=== PATIENT | male | born 1955 | race Caucasian/White ===

== ENCOUNTER 2016-06-04 15:09 | Emergency (ER) | payer MEDICARE, OTHER ==
[~2016-06-04] VITALS: Ht 170.2 cm; Wt 63.5 kg
[2016-06-04 15:21] VITALS: BP 143/77
--- NOTE | 2016-06-04 15:35 | NUR ---
PT PRESENTS TO ER C/O DISLODGED SUPRAPUBIC CATH X1 DAY. NAD NOTED. NO OTHER COMPLAINTS. IN ER BED 15.
--- NOTE | 2016-06-04 15:55 | NUR ---
22FR SUPRAPUBIC CATH INSERTED UNDER SUPERVISION OF DR CABRERA. DRAINING CLEAR YELLOW URINE. TOLERATED PROCEDURE WELL.
--- NOTE | 2016-06-04 15:59 | NUR ---
CALLED [facility] [phone], SPOKE WITH JOE, INFORMED HER PT IS READY TO GO BACK IF THEY CAN SEND A [facility] PT, SHE SAID SHE WILL LET THE NURSE KNOW
--- NOTE | 2016-06-04 16:14 | NUR ---
Bonifacio romero in ED - 06/04/16 at 1620 by [facility] Patient discharged to home in stable condition. Written and verbal after care instructions given. Patient verbalizes understanding of instruction.
--- NOTE | 2016-06-04 16:14 | NUR ---
PT ELOPED FROM FACILITY
[2016-06-04] MEDS ORDERED: PHEN200C5 PO (18:27)
[2016-06-04] MEDS ORDERED: ASPI81TA2 PO (18:27)
[2016-06-04] MEDS ORDERED: PANT40TA4 PO (18:27)
[2016-06-04] MEDS ORDERED: AMLO10TA2 PO (18:27)
[2016-06-04] MEDS ORDERED: BISA5TAB10 PO (18:27)
[2016-06-04] MEDS ORDERED: IBUP-1482 PO (18:27)
[2016-06-04] MEDS ORDERED: ACET-868 PO (18:27)
[2016-06-04] MEDS ORDERED: LORA0.5T PO (18:27)
[2016-06-04] MEDS ORDERED: NITR0.4T6 SL (18:27)
[2016-06-04] MEDS ORDERED: OXYB5TAB11 PO (18:27)
[2016-06-04] MEDS ORDERED: DOCU-270 PO (18:27)
[2016-06-04] MEDS ORDERED: LOSA100T15 PO (18:27)
[2016-06-04] MEDS ORDERED: TIMO5DRO4 EACHEYE (18:27)
[2016-06-04] MEDS ORDERED: MORP4VIA IV (18:27)
[2016-06-04] MEDS ORDERED: NAPR250T2 PO (18:27)
[2016-06-04] MEDS ORDERED: MAGN400O6 PO (18:27)
[2016-06-04] MEDS ORDERED: CLON0.1T PO (18:27)
[2016-06-04] MEDS ORDERED: HYDR2VIA3 IM (18:27)
[2016-06-04] MEDS ORDERED: DIVA250T PO (18:27)
[2016-06-04] MEDS ORDERED: NA P133E RC (18:27)
[2016-06-04] MEDS ORDERED: POLY17PO4 PO (18:27)
[2016-06-04] MEDS ORDERED: BACL10TA PO (18:27)
[2016-06-04] MEDS ORDERED: MULT-659 PO (18:27)
== END 2016-06-04 16:14 | disposition left against medical advice (07) ==
LOC: ER 15:12
DX: Z46.6 Encounter for fitting and adjustment of urinary device (principal); R39.89 Other symptoms and signs involving the genitourinary system; G40.909 Epilepsy, unspecified, not intractable, without status epilepticus; I10 Essential (primary) hypertension; J45.901 Unspecified asthma with (acute) exacerbation; Z88.0 Allergy status to penicillin
CPT/HCPCS: A4606; Z7610

== ENCOUNTER 2016-06-04 16:45 | Emergency (ER) | payer MEDICARE, OTHER ==
[~2016-06-04] VITALS: Ht 170.2 cm; Wt 63.5 kg
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
[2016-06-04] MEDS ORDERED: OLANZAPINE 5 MG TABLET PO ONE (17:00)
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
--- NOTE | 2016-06-04 17:26 | NUR ---
CALLED [facility], GPS INTAKE, ACCORDING TO [facility] WE CAN NOT TAKE PT BECAUSE HE IS ONLY MEDICARE PART A, NOT PART B.
--- NOTE | 2016-06-04 17:27 | NUR ---
CALLED [facility] BACK TO INFORM HER OF INSURANCE
[2016-06-04] MEDS ORDERED: OLANZAPINE 10 MG VIAL IM ONE ×2 (17:50→18:30)
[2016-06-04] MEDS ORDERED: WATER FOR INJECTION,STERILE 10 ML ONE (17:50)
--- NOTE | 2016-06-04 18:00 | NUR ---
PT CONTINUES TO REFUSE PO ZYPREXA, BLOOD DRAW, XRAY, ANY DIAGNOSTICS. PT STATES "I REFUSE ALL TESTS" DESPITE EDUCATION ON NECESSITY. VERBAL ORDER FOR ZYPREXA 10MG IM OBTAINED AND ADMINISTERED R DELTOID.
--- NOTE | 2016-06-04 18:02 | NUR ---
PT. REFUSING FOR CT AND XRAY, INFORMED NURSE (TAE).
--- NOTE | 2016-06-04 18:18 | NUR ---
[facility] AT BEDSIDE
[2016-06-04] MEDS ORDERED: ASPI81TA2 PO (18:27)
[2016-06-04] MEDS ORDERED: ACET-868 PO (18:27)
[2016-06-04] MEDS ORDERED: NITR0.4T6 SL (18:27)
[2016-06-04] MEDS ORDERED: CLON0.1T PO (18:27)
[2016-06-04] MEDS ORDERED: MORP4VIA IV (18:27)
[2016-06-04] MEDS ORDERED: PANT40TA4 PO (18:27)
[2016-06-04] MEDS ORDERED: HYDR2VIA3 IM (18:27)
[2016-06-04] MEDS ORDERED: TIMO5DRO4 EACHEYE (18:27)
[2016-06-04] MEDS ORDERED: DIVA250T PO (18:27)
[2016-06-04] MEDS ORDERED: PHEN200C5 PO (18:27)
[2016-06-04] MEDS ORDERED: MULT-659 PO (18:27)
[2016-06-04] MEDS ORDERED: IBUP-1482 PO (18:27)
[2016-06-04] MEDS ORDERED: AMLO10TA2 PO (18:27)
[2016-06-04] MEDS ORDERED: OXYB5TAB11 PO (18:27)
[2016-06-04] MEDS ORDERED: NA P133E RC (18:27)
[2016-06-04] MEDS ORDERED: LOSA100T15 PO (18:27)
[2016-06-04] MEDS ORDERED: NAPR250T2 PO (18:27)
[2016-06-04] MEDS ORDERED: BACL10TA PO (18:27)
[2016-06-04] MEDS ORDERED: MAGN400O6 PO (18:27)
[2016-06-04] MEDS ORDERED: DOCU-270 PO (18:27)
[2016-06-04] MEDS ORDERED: BISA5TAB10 PO (18:27)
[2016-06-04] MEDS ORDERED: POLY17PO4 PO (18:27)
[2016-06-04] MEDS ORDERED: LORA0.5T PO (18:27)
--- NOTE | 2016-06-04 19:11 | NUR ---
[facility], ETA 2000
--- NOTE | 2016-06-04 20:12 | NUR ---
PT DISCHARGED TO [facility] VIA [facility] IN STABLE CONDITION. Written and verbal after care instructions given. Patient verbalizes understanding of instruction.
[2016-06-04 20:27] VITALS: BP 142/83
== END 2016-06-04 20:28 ==
LOC: ER 16:45
DX: F91.1 Conduct disorder, childhood-onset type (principal); I10 Essential (primary) hypertension; J44.9 Chronic obstructive pulmonary disease, unspecified; K21.9 Gastro-esophageal reflux disease without esophagitis; F31.9 Bipolar disorder, unspecified; F41.9 Anxiety disorder, unspecified; H40.9 Unspecified glaucoma; G82.20 Paraplegia, unspecified; Z88.0 Allergy status to penicillin; Z79.82 Long term (current) use of aspirin
CPT/HCPCS: 96372; 99283; A4606; J3490; Z7610